=== PATIENT | male | born 1965 | race Two or more races ===

== ENCOUNTER 2020-03-08 15:59 | Inpatient (IN) | payer OTHER ==
[2020-03-08] MEDS ORDERED: ONDANSETRON *ODT* 4 MG TABLET SL ONE (17:00)
[2020-03-08 17:35] VITALS: BMI 36.1
[2020-03-08] MEDS ORDERED: MAGNESIUM CITRATE 300 ML BOTTLE PO PRN (18:10)
[2020-03-08] MEDS ORDERED: MENTHOL/PHENOL 1 EACH UD MM PRN (18:10)
[2020-03-08] MEDS ORDERED: IBUPROFEN 400 MG TABLET (FP) PO PRN (18:10)
[2020-03-08] MEDS ORDERED: ACETAMINOPHEN 325 MG TABLET (FP) PO PRN ×2 (18:10)
[2020-03-08] MEDS ORDERED: MAG HYDROX/AL HYDROX/SIMETH 30 ML UNIT-DOSE CUP PO PRN (18:10)
[2020-03-08] MEDS ORDERED: MAGNESIUM HYDROX 2400MG/30ML ORAL SUSPENSION 30 ML CUP PO PRN (18:10)
[2020-03-08] MEDS ORDERED: BISMUTH SUBSALICYLATE 524 MG/30 ML UD PO PRN (18:10)
[2020-03-08] MEDS ORDERED: NICOTINE POLACRILEX 2 MG GUM BUC PRN (18:10)
[2020-03-08] MEDS ORDERED: METHOCARBAMOL 500 MG TABLET PO PRN (18:10)
[2020-03-08] MEDS ORDERED: ALBUTEROL SO4 0.083% IH SOL 2.5 MG/3 ML VIAL.NEB. NEB PRN (19:13)
[2020-03-08] MEDS ORDERED: chlordiazePOXIDE HCL 25 MG CAPSULE PO PRN (19:14)
[2020-03-08] MEDS: PANTOPRAZOLE 40 MG TABLET PO SCH (19:46)
[2020-03-08] MEDS: THIAMINE HCL 100 MG TABLET (FP) PO SCH (22:04)
[2020-03-08] MEDS: MELATONIN 5 MG TABLETS PO SCH (22:04)
[2020-03-08] MEDS: hydrOXYzine PAMOATE 25 MG CAPSULE (FP) PO SCH (22:04)
[2020-03-08] MEDS: chlordiazePOXIDE HCL 25 MG CAPSULE PO SCH (22:05)
[2020-03-09] MEDS: chlordiazePOXIDE HCL 25 MG CAPSULE PO SCH ×4 (05:45→22:06)
[2020-03-09] MEDS: hydrOXYzine PAMOATE 25 MG CAPSULE (FP) PO SCH ×5 (05:46→22:06)
[2020-03-09 09:47] LABS: HEMATOCRIT 40.1 % (35.4-49); HEMOGLOBIN 13.4 GM/dL (11.7-16.9); MCH 31.3 pg (25.7-33.7); MCHC 33.5 g/dl (32.0-35.9); MEAN CELL VOLUME 93.3 fl (80-96); MEAN PLT VOLUME 9.7 fl (7.5-11.1); PLATELET COUNT 174 K/MM3 (134-434); RBC 4.29 M/mm3 (4.00-5.60); RDW 13.3 % (11.9-15.9); WHITE BLOOD COUNT 5.2 K/mm3 (4.0-10.0)
[2020-03-09 09:56] LABS: ALBUMIN 3.8 g/dl (3.4-5.0); CALCIUM 9.4 mg/dL (8.5-10.1); CREATININE 1.2 mg/dL (0.55-1.3); POTASSIUM 3.7 mmol/L (3.5-5.1)
[2020-03-09 09:58] LABS: BILIRUBIN,TOTAL 0.5 mg/dL (0.2-1); TOT PROT 6.8 g/dl (6.4-8.2)
[2020-03-09] MEDS: PRENATAL VITAMINS W/ FOLIC ACID TABLET (FP) PO SCH (10:05)
[2020-03-09] MEDS: PANTOPRAZOLE 40 MG TABLET PO SCH (10:06)
[2020-03-09] MEDS: ASPIRIN COATED 81 MG TABLET.EC PO SCH (10:06)
[2020-03-09] MEDS: HYDROCHLOROTHIAZIDE 25 MG TABLET (FP) PO SCH (10:06)
[2020-03-09] MEDS: INSULIN SLIDING SCALE (NOVOLOG) 1 VIAL SQ SCH ×2 (17:26→21:28)
[2020-03-09] MEDS: MELATONIN 5 MG TABLETS PO SCH (22:07)
[2020-03-09] MEDS: THIAMINE HCL 100 MG TABLET (FP) PO SCH (22:07)
[2020-03-10] MEDS: hydrOXYzine PAMOATE 25 MG CAPSULE (FP) PO SCH ×5 (05:46→22:20)
[2020-03-10] MEDS: chlordiazePOXIDE HCL 25 MG CAPSULE PO SCH ×4 (05:46→22:20)
[2020-03-10] MEDS: INSULIN SLIDING SCALE (NOVOLOG) 1 VIAL SQ SCH ×4 (07:34→21:17)
[2020-03-10] MEDS ORDERED: INSULIN SLIDING SCALE (NOVOLOG) 1 VIAL SQ ONE (07:38)
[2020-03-10] MEDS: PRENATAL VITAMINS W/ FOLIC ACID TABLET (FP) PO SCH (10:11)
[2020-03-10] MEDS: ASPIRIN COATED 81 MG TABLET.EC PO SCH (10:11)
[2020-03-10] MEDS: HYDROCHLOROTHIAZIDE 25 MG TABLET (FP) PO SCH (10:11)
[2020-03-10] MEDS: PANTOPRAZOLE 40 MG TABLET PO SCH (10:12)
[2020-03-10] MEDS ORDERED: LOPERAMIDE HCL 2 MG CAPSULE PO ONE (12:10)
[2020-03-10] MEDS: THIAMINE HCL 100 MG TABLET (FP) PO SCH (22:20)
[2020-03-10] MEDS: MELATONIN 5 MG TABLETS PO SCH (22:20)
[2020-03-11] MEDS ORDERED: chlordiazePOXIDE HCL 10 MG CAPSULE PO PRN
[2020-03-11] MEDS: chlordiazePOXIDE HCL 10 MG CAPSULE PO SCH ×4 (05:46→22:17)
[2020-03-11] MEDS: hydrOXYzine PAMOATE 25 MG CAPSULE (FP) PO SCH ×5 (05:46→22:17)
[2020-03-11] MEDS: INSULIN SLIDING SCALE (NOVOLOG) 1 VIAL SQ SCH ×4 (07:34→21:18)
[2020-03-11] MEDS ORDERED: INSULIN SLIDING SCALE (NOVOLOG) 1 VIAL SQ ONE (07:38)
[2020-03-11] MEDS: ASPIRIN COATED 81 MG TABLET.EC PO SCH (10:08)
[2020-03-11] MEDS: HYDROCHLOROTHIAZIDE 25 MG TABLET (FP) PO SCH (10:08)
[2020-03-11] MEDS: PANTOPRAZOLE 40 MG TABLET PO SCH (10:08)
[2020-03-11] MEDS: PRENATAL VITAMINS W/ FOLIC ACID TABLET (FP) PO SCH (10:09)
[2020-03-11 14:23] LABS: PH,URINE 5.5 (5.0-8.0); URINE APPEARANCE CLEAR; URINE BILIRUBIN NEGATIVE (NEGATIVE); URINE COLOR YELLOW; URINE GLUCOSE (UA) 1+ (NEGATIVE); URINE KETONE NEGATIVE (NEGATIVE); URINE LEUK ESTERASE NEGATIVE (NEGATIVE); URINE NITRITE NEGATIVE (NEGATIVE); URINE PROTEIN NEGATIVE (NEGATIVE); URINE UROBILINOGEN 0.2 mg/dL (0.2-1.0)
[2020-03-11] MEDS: MELATONIN 5 MG TABLETS PO SCH (22:17)
[2020-03-11] MEDS: THIAMINE HCL 100 MG TABLET (FP) PO SCH (22:17)
[2020-03-12] MEDS: hydrOXYzine PAMOATE 25 MG CAPSULE (FP) PO SCH ×5 (05:25→21:35)
[2020-03-12] MEDS: chlordiazePOXIDE HCL 10 MG CAPSULE PO SCH ×2 (05:25→17:16)
[2020-03-12] MEDS ORDERED: INSULIN SLIDING SCALE (NOVOLOG) 1 VIAL SQ ONE ×3 (05:37→11:49)
[2020-03-12] MEDS: INSULIN SLIDING SCALE (NOVOLOG) 1 VIAL SQ SCH ×4 (06:17→21:36)
[2020-03-12] MEDS: PRENATAL VITAMINS W/ FOLIC ACID TABLET (FP) PO SCH (10:19)
[2020-03-12] MEDS: ASPIRIN COATED 81 MG TABLET.EC PO SCH (10:19)
[2020-03-12] MEDS: PANTOPRAZOLE 40 MG TABLET PO SCH (10:19)
[2020-03-12] MEDS: HYDROCHLOROTHIAZIDE 25 MG TABLET (FP) PO SCH (10:19)
[2020-03-12] MEDS: MELATONIN 5 MG TABLETS PO SCH (21:35)
[2020-03-12] MEDS: THIAMINE HCL 100 MG TABLET (FP) PO SCH (21:35)
[2020-03-13] MEDS ORDERED: chlordiazePOXIDE HCL 10 MG CAPSULE PO ONE (05:00)
[2020-03-13] MEDS: hydrOXYzine PAMOATE 25 MG CAPSULE (FP) PO SCH ×2 (06:00→09:14)
[2020-03-13] MEDS: INSULIN SLIDING SCALE (NOVOLOG) 1 VIAL SQ SCH (06:58)
[2020-03-13] MEDS ORDERED: INSULIN SLIDING SCALE (NOVOLOG) 1 VIAL SQ ONE (07:02)
[2020-03-13] MEDS: HYDROCHLOROTHIAZIDE 25 MG TABLET (FP) PO SCH (09:13)
[2020-03-13] MEDS: ASPIRIN COATED 81 MG TABLET.EC PO SCH (09:13)
[2020-03-13] MEDS: PANTOPRAZOLE 40 MG TABLET PO SCH (09:14)
[2020-03-13] MEDS: PRENATAL VITAMINS W/ FOLIC ACID TABLET (FP) PO SCH (09:14)
[2020-03-13 09:27] VITALS: BP 127/86; PULSE 103; TEMP 97.1
[2020-03-13] MEDS ORDERED: metFORMIN HCL 500 MG TABLET (FP) PO SCH (16:30)
== END 2020-03-13 09:27 | disposition home or self-care (01) | DRG 897 ==
LOC: YASAS 15:59 → Y3N 18:49
PROVIDERS: ADMIT Allergy & Immunology; ATTEND Allergy & Immunology
PROC: HZ2ZZZZ Detoxification Services for Substance Abuse Treatment (ICD-10-PCS; principal; 2020-03-08)
DX: F10.230 Alcohol dependence with withdrawal, uncomplicated (principal); F12.20 Cannabis dependence, uncomplicated; F17.211 Nicotine dependence, cigarettes, in remission; F41.9 Anxiety disorder, unspecified; F43.10 Post-traumatic stress disorder, unspecified; I10 Essential (primary) hypertension; J45.909 Unspecified asthma, uncomplicated; K21.9 Gastro-esophageal reflux disease without esophagitis; E11.9 Type 2 diabetes mellitus without complications; Z79.84 Long term (current) use of oral hypoglycemic drugs; R12 Heartburn; E66.9 Obesity, unspecified; Z68.36 Body mass index [BMI] 36.0-36.9, adult; Z86.718 Personal history of other venous thrombosis and embolism; Z95.828 Presence of other vascular implants and grafts; Z56.0 Unemployment, unspecified
CPT/HCPCS: 36415; 80053; 81003; 82962; 83036; 85027; 86780; 93005; 93010; Q0162; U0003

== ENCOUNTER 2024-07-14 17:08 | Inpatient (IN) | payer OTHER ==
[2024-07-14 18:50] VITALS: BMI 34.5
[2024-07-15] MEDS ORDERED: IBUPROFEN 400 MG TABLET (FP) PO PRN (00:03)
[2024-07-15] MEDS ORDERED: BENZONATATE 200 MG CAPSULE PO PRN (00:03)
[2024-07-15] MEDS ORDERED: NALOXONE (NARCAN) HCL 4 MG/0.1 ML SPRAY NS PRN (00:03)
[2024-07-15] MEDS ORDERED: hydrOXYzine PAMOATE 25 MG CAPSULE (FP) PO PRN (00:03)
[2024-07-15] MEDS ORDERED: LOPERAMIDE HCL 2 MG CAPSULE PO PRN (00:03)
[2024-07-15] MEDS ORDERED: guaiFENesin 600 MG TABLET.ER (FP) PO PRN (00:03)
[2024-07-15] MEDS ORDERED: BENZOCAINE/MENTHOL (CHLORASEPTIC ) LOZENGE MM PRN (00:03)
[2024-07-15] MEDS ORDERED: ONDANSETRON *ODT* 4 MG TABLET SL PRN (00:03)
[2024-07-15] MEDS ORDERED: POLYETHYLENE GLYCOL (HEALTHYLAX) 3350 17 GM PACKET PO PRN (00:03)
[2024-07-15] MEDS ORDERED: MAG HYDROX/AL HYDROX/SIMETH 30 ML UNIT-DOSE CUP PO PRN (00:03)
[2024-07-15] MEDS ORDERED: NALOXONE (NYS OPIOID OVERDOSE PROGRAM) 4 MG/0.1 ML SPRAY NS PRN (00:03)
[2024-07-15] MEDS ORDERED: DICYCLOMINE HCL 10 MG CAPSULE PO PRN (00:03)
[2024-07-15] MEDS ORDERED: chlordiazePOXIDE HCL 25 MG CAPSULE PO PRN (00:06)
[2024-07-15] MEDS ORDERED: ALBUTEROL SO4 2.5/IPRATROPIUM 0.5 INH SOL 3 ML VIAL.NEB. NEB ONE (00:19)
[2024-07-15] MEDS: ALBUTEROL SO4 0.083% IH SOL 2.5 MG/3 ML VIAL.NEB. NEB ONE (00:37)
[2024-07-15] MEDS ORDERED: ACETAMINOPHEN 325 MG TABLET (FP) ONE (01:21)
[2024-07-15] MEDS: chlordiazePOXIDE HCL 25 MG CAPSULE PO SCH (04:30)
[2024-07-15] MEDS: INSULIN ASPART SLIDING SCALE (NOVOLOG) 1 VIAL SQ SCH (06:24)
[2024-07-15] MEDS: PRENATAL VITAMINS W/ FOLIC ACID TABLET (FP) PO SCH (10:25)
[2024-07-15] MEDS: BISMUTH SUBSALICYLATE 524 MG/30 ML PO PRN (10:27)
[2024-07-15] MEDS: ACETAMINOPHEN 325 MG TABLET (FP) PO PRN (12:59)
[2024-07-15] MEDS: LISINOPRIL 10 MG TABLET PO SCH (14:04)
[2024-07-15] MEDS: IBUPROFEN 600 MG TABLET (FP) PO PRN (17:28)
[2024-07-15] MEDS ORDERED: [UNRECOGNIZED DRUG - OTHER] PO SCH (22:00)
[2024-07-15] MEDS ORDERED: EZETIMIBE PO SCH (22:00)
[2024-07-15] MEDS ORDERED: ROSUVASTATIN CALCIUM PO SCH (22:00)
[2024-07-15] MEDS ORDERED: ROSUVASTATIN CA 10 MG TABLET ONE (23:02)
[2024-07-15] MEDS: METHOCARBAMOL 500 MG TABLET PO PRN (23:03)
[2024-07-15] MEDS: THIAMINE 100 MG TABLET PO SCH (23:03)
[2024-07-15] MEDS: MELATONIN 5 MG TABLETS PO SCH (23:03)
[2024-07-15] MEDS: MONTELUKAST NA 10 MG TABLET PO SCH (23:04)
[2024-07-15] MEDS: ROSUVASTATIN CA 20 MG TABLET PO SCH (23:07)
[2024-07-15] MEDS: BUDESONIDE/FORMETEROL FUMARATE 160/4.5 mcg INHALER IH SCH (23:10)
[2024-07-15] MEDS: EZETIMIBE 10 MG TABLET (FP) PO SCH (23:11)
[2024-07-16] MEDS: chlordiazePOXIDE HCL 25 MG CAPSULE PO SCH (05:23)
[2024-07-16] MEDS: HYDROCHLOROTHIAZIDE 25 MG TABLET (FP) PO SCH (10:15)
[2024-07-16] MEDS: MAGNESIUM HYDROX 2400MG/30ML ORAL SUSPENSION 30 ML CUP PO PRN (22:26)
[2024-07-16] MEDS: ALBUTEROL SO4 HFA INHALER IH PRN (22:43)
[2024-07-16] MEDS: ALBUTEROL SO4 2.5/IPRATROPIUM 0.5 INH SOL 3 ML VIAL.NEB. NEB ONE (22:53)
[2024-07-16 23:01] VITALS: BP 150/101; TEMP 97.5
[2024-07-16 23:21] VITALS: PULSE 95; RESP 24
[2024-07-16] MEDS: ALBUTEROL SO4 0.042% IH SOL 1.25 MG/3 ML VIAL.NEB NEB ONE (23:57)
[2024-07-17] MEDS ORDERED: chlordiazePOXIDE HCL 10 MG CAPSULE PO PRN
[2024-07-17] MEDS ORDERED: chlordiazePOXIDE HCL 10 MG CAPSULE PO SCH (05:00)
[2024-07-18] MEDS ORDERED: chlordiazePOXIDE HCL 10 MG CAPSULE PO SCH (05:00)
[2024-07-19] MEDS ORDERED: chlordiazePOXIDE HCL 10 MG CAPSULE PO ONE (05:00)
== END 2024-07-17 02:00 | disposition short-term general hospital (02) | DRG 897 ==
LOC: YASAS 17:08 → Y3N 07-15 02:15
PROVIDERS: ADMIT Allergy & Immunology; ATTEND Family Medicine
PROC: HZ2ZZZZ Detoxification Services for Substance Abuse Treatment (ICD-10-PCS; principal; 2024-07-15)
DX: F10.230 Alcohol dependence with withdrawal, uncomplicated (principal); F41.1 Generalized anxiety disorder; F32.A Depression, unspecified; F43.10 Post-traumatic stress disorder, unspecified; I10 Essential (primary) hypertension; E11.9 Type 2 diabetes mellitus without complications; J45.909 Unspecified asthma, uncomplicated; Z86.718 Personal history of other venous thrombosis and embolism; Z87.891 Personal history of nicotine dependence
CPT/HCPCS: 36415; 80305; 80307; 82962; 93005; 93010; 94640

== ENCOUNTER 2024-07-17 | Inpatient (IN) | payer OTHER ==
[2024-07-17 00:06] VITALS: BMI 33.0
[2024-07-17] MEDS ORDERED: EPINEPHrine/PF 1 MG/1 ML (1:1,000) AMPULE ONE (00:07)
[2024-07-17] MEDS ORDERED: ALBUTEROL SO4 0.083% IH SOL 2.5 MG/3 ML VIAL.NEB. NEB ONE (00:09)
[2024-07-17] MEDS: EPINEPHrine 1:1,000 1,000 MCG/ML ML SQ ONE ×2 (00:12→11:10)
[2024-07-17] MEDS: ALBUTEROL SULFATE 0.021% (0.63 MG/3 ML) VIAL.NEB NEB ONE ×2 (00:12→03:08)
[2024-07-17] MEDS ORDERED: MAGNESIUM SULFATE IN WATER 2 GM/50 ML IVPB IVPB ONE (00:14)
[2024-07-17] MEDS: MAGNESIUM SULF 50% (8.12 MEQ/2 ML-1 GM VIAL) IVPB ONE (00:18)
[2024-07-17 00:38] LABS: BASO % 0.8 % (0-2.0); EOS % 2.8 % (0-4.5); HEMATOCRIT 40.6 % (35.4-49); HEMOGLOBIN 13.5 GM/dL (11.7-16.9); LYMPH % 48.3 % (8-40); MCHC 33.2 g/dl (32.0-35.9); MEAN CELL VOLUME 90.6 fl (80-96); MEAN PLT VOLUME 9.1 fl (7.5-11.1); MONO % 10.8 % (3.8-10.2); NEUT % 37.3 % (42.8-82.8); PLATELET COUNT 141 10^3/uL (134-434); RBC 4.48 M/mm3 (4.00-5.60); WHITE BLOOD COUNT 5.3 K/mm3 (4.0-10.0)
[2024-07-17 00:57] LABS: VENOUS BASE EXCESS 0.3 mmol/L (-2-2); VENOUS O2 SATURATION 99.4 % (70-80); VENOUS PCO2 32.4 mmHg (38-52); VENOUS PH 7.472 (7.310-7.410)
[2024-07-17 01:03] LABS: POTASSIUM 4.5 mmol/L (3.5-5.1)
[2024-07-17 01:05] LABS: ALBUMIN 3.8 g/dl (3.4-5.0); BLOOD UREA NITROGEN 13.1 mg/dL (7-18); CALCIUM 9.6 mg/dL (8.5-10.1); MAGNESIUM 2.5 mg/dL (1.8-2.4)
[2024-07-17 01:10] LABS: BILIRUBIN,TOTAL 0.5 mg/dL (0.2-1); TOT PROT 6.8 g/dl (6.4-8.2)
[2024-07-17] MEDS ORDERED: ALBUTEROL SO4 2.5/IPRATROPIUM 0.5 INH SOL 3 ML VIAL.NEB. NEB ONE ×2 (03:02→08:49)
[2024-07-17] MEDS: IPRATROPIUM BR 0.02% 0.5 MG/2.5 ML VIAL.NEB. NEB ONE (03:09)
[2024-07-17] MEDS ORDERED: ALBUTEROL SO4 0.083% IH SOL 2.5 MG/3 ML VIAL.NEB. NEB PRN ×3 (07:37→12:00)
[2024-07-17] MEDS ORDERED: chlordiazePOXIDE HCL 10 MG CAPSULE ONE (08:50)
[2024-07-17] MEDS ORDERED: INSULIN ASPART SLIDING SCALE (NOVOLOG) 1 VIAL SQ ONE (08:51)
[2024-07-17] MEDS: ALBUTEROL SO4 2.5/IPRATROPIUM 0.5 INH SOL 3 ML VIAL.NEB. NEB SCH (08:58)
[2024-07-17] MEDS: INSULIN ASPART SLIDING SCALE (NOVOLOG) 1 VIAL SQ SCH (08:58)
[2024-07-17] MEDS: chlordiazePOXIDE HCL 10 MG CAPSULE PO SCH (08:58)
[2024-07-17] MEDS: ACETAMINOPHEN 325 MG TABLET (FP) PO PRN (09:42)
[2024-07-17] MEDS: methylPREDNISolone NA SUCC 40 MG/1 ML VIAL IVPUSH SCH (09:50)
[2024-07-17] MEDS ORDERED: DIVALPROEX SODIUM 500 MG TABLET E.C. PO SCH (10:00)
[2024-07-17] MEDS: ALBUTEROL SO4 0.083% IH SOL 2.5 MG/3 ML VIAL.NEB. NEB ONE (10:03)
[2024-07-17] MEDS: ACETAMINOPHEN 1000 MG/100 ML BAG IVPB ONE (10:04)
[2024-07-17] MEDS ORDERED: ALBUTEROL SO4 2.5/IPRATROPIUM 0.5 INH SOL 3 ML VIAL.NEB. NEB SCH (10:30)
[2024-07-17 10:41] LABS: ALLENS TEST POSITIVE; ARTERIAL BLD GAS O2 SATURATION 99.7 % (95-98); ARTERIAL BLOOD GAS BASE EXCESS -3.8 mmol/L (-2-2); ARTERIAL BLOOD GAS PO2 266.3 mmHg (80-100); VENT MODE S/T
[2024-07-17 10:42] LABS: VENT RATE 12
[2024-07-17] MEDS: MAGNESIUM 2GM/50ML STERILE WATER IVPB IVPB ONE (10:45)
[2024-07-17] MEDS: methylPREDNISolone NA SUCC 125 MG/2 ML VIAL IVPUSH ONE ×2 (10:45→11:07)
[2024-07-17] MEDS: FUROSEMIDE 40 MG/4 ML INJECTABLE VIAL IVPUSH ONE (10:45)
[2024-07-17] MEDS: FOLIC ACID 1 MG TABLET (FP) PO SCH (11:03)
[2024-07-17] MEDS: EMPAGLIFLOZIN (JARDIANCE) 10 MG TABLET PO SCH (11:03)
[2024-07-17] MEDS: MULTIVITAMINS (DAILY MVI) TABLET (FP) PO SCH (11:04)
[2024-07-17] MEDS: PANTOPRAZOLE 40 MG TABLET PO SCH (11:04)
[2024-07-17] MEDS: THIAMINE 100 MG TABLET PO SCH (11:06)
[2024-07-17] MEDS: ENOXAPARIN NA (PORCINE) 40 MG/0.4 ML DISP.SYRIN SQ SCH (11:38)
[2024-07-17] MEDS: PIPERACILLIN/TAZOB 3.375 GM 3.375 GM in DEXTROSE 5%-WATER - 50 ML IVPB SCH ×3 (11:38→17:20)
[2024-07-17] MEDS: RACEPINEPHRINE IH SOL 2.25% 11.25 MG/0.5 ML VIAL NEB ONE (11:54)
[2024-07-17] MEDS: BUDESONIDE/FORMETEROL FUMARATE 160/4.5 mcg INHALER IH SCH (12:26)
[2024-07-17] MEDS: VANCOMYCIN/WATER FOR INJ (PEG) 1,000 MG/200 ML BAG IVPB ONE (13:46)
[2024-07-17 15:21] LABS: HIV INTERPRETATION NEGATIVE (NEGATIVE)
[2024-07-17] MEDS: ACAMPROSATE CALCIUM 333 MG TABLET.DR PO SCH (17:22)
[2024-07-17] MEDS: amLODIPine BESYLATE 10 MG TABLET (FP) PO SCH (17:22)
[2024-07-17] MEDS: LISINOPRIL 20 MG TABLET PO SCH (17:22)
[2024-07-17] MEDS: PATIENT'S OWN MEDICATION (NON-FORMULARY) (Amlodipine Besylate/Benazepril [Amlodipine-Benaz PO SCH (17:40)
[2024-07-17] MEDS: IBUPROFEN 400 MG TABLET (FP) PO PRN (18:31)
[2024-07-17] MEDS: ROSUVASTATIN CA 20 MG TABLET PO SCH (22:10)
[2024-07-17] MEDS: MONTELUKAST NA 10 MG TABLET PO SCH (22:11)
[2024-07-17] MEDS: INSULIN (LEVEMIR) 100 UNITS/ML UNITS SQ SCH (22:11)
[2024-07-18] MEDS: methylPREDNISolone NA SUCC 125 MG/2 ML VIAL IVPUSH ONE (00:16)
[2024-07-18] MEDS: chlordiazePOXIDE HCL 10 MG CAPSULE PO PRN (00:18)
[2024-07-18] MEDS: BENZOCAINE/MENTH/CETYLPYRD CL 1 EACH LOZENGE MM PRN (01:02)
[2024-07-18] MEDS: EMPAGLIFLOZIN (JARDIANCE) 10 MG TABLET PO SCH (06:46)
[2024-07-18] MEDS: chlordiazePOXIDE HCL 10 MG CAPSULE PO SCH (06:46)
[2024-07-18] MEDS: LEVALBUTEROL HCL 0.63 MG/3 ML VIAL.NEB. IH SCH (08:49)
[2024-07-18 10:30] LABS: BASO % 0.1 % (0-2.0); HEMATOCRIT 43.1 % (35.4-49); INR 0.96 (0.83-1.09); LYMPH % 8.3 % (8-40); MCH 30.2 pg (25.7-33.7); MCHC 32.6 g/dl (32.0-35.9); MEAN CELL VOLUME 92.6 fl (80-96); MEAN PLT VOLUME 9.2 fl (7.5-11.1); MONO % 5.9 % (3.8-10.2); NEUT % 85.7 % (42.8-82.8); PLATELET COUNT 169 10^3/uL (134-434); PROTHROMBIN TIME (PATIENT) 11.1 SEC (9.7-13.0); RBC 4.65 M/mm3 (4.00-5.60); WHITE BLOOD COUNT 13.4 K/mm3 (4.0-10.0)
[2024-07-18 10:33] LABS: ACTIVATED PTT 25.6 SECONDS (25.2-36.5)
[2024-07-18 11:21] LABS: POTASSIUM 4.4 mmol/L (3.5-5.1)
[2024-07-18 11:23] LABS: CALCIUM 10.4 mg/dL (8.5-10.1)
[2024-07-18 11:24] LABS: BLOOD UREA NITROGEN 24.8 mg/dL (7-18)
[2024-07-18 11:28] LABS: CREATININE 1.6 mg/dL (0.55-1.3)
[2024-07-18 12:02] LABS: N-TERMINAL BNP 198.6 pg/ml (5-125)
[2024-07-18] MEDS: MAG HYDROX/AL HYDROX/SIMETH 30 ML UNIT-DOSE CUP PO ONE (13:55)
[2024-07-18] MEDS: IPRATROPIUM BR 0.02% 0.5 MG/2.5 ML VIAL.NEB. NEB SCH (14:03)
[2024-07-18] MEDS ORDERED: POLYETHYLENE GLYCOL (HEALTHYLAX) 3350 17 GM PACKET PO PRN (16:10)
[2024-07-18 21:05] VITALS: RESP 18
[2024-07-18] MEDS: methylPREDNISolone NA SUCC 40 MG/1 ML VIAL IVPUSH SCH (21:19)
[2024-07-19] MEDS: chlordiazePOXIDE HCL 10 MG CAPSULE PO ONE (05:05)
[2024-07-19 06:27] VITALS: TEMP 97.5
[2024-07-19 09:24] VITALS: BP 134/78; PULSE 94
[2024-07-19] MEDS: AMOX TR/POT CLAV 875MG/125MG TABLETS (FP) PO SCH (09:38)
[2024-07-19] MEDS: predniSONE 20 MG TABLET (UD) PO SCH (09:39)
[2024-07-19] MEDS ORDERED: predniSONE 20 MG TABLET (UD) PO SCH (10:00)
[2024-07-19] MEDS ORDERED: methylPREDNISolone NA SUCC 40 MG/1 ML VIAL IVPUSH SCH (10:00)
[2024-07-19 10:30] LABS: BASO % 0.1 % (0-2.0); HEMATOCRIT 43.7 % (35.4-49); HEMOGLOBIN 14.3 GM/dL (11.7-16.9); LYMPH % 12.2 % (8-40); MCH 30.1 pg (25.7-33.7); MCHC 32.7 g/dl (32.0-35.9); MEAN CELL VOLUME 91.9 fl (80-96); MEAN PLT VOLUME 9.4 fl (7.5-11.1); MONO % 5.9 % (3.8-10.2); NEUT % 81.8 % (42.8-82.8); PLATELET COUNT 164 10^3/uL (134-434); RBC 4.75 M/mm3 (4.00-5.60); RDW 15.7 % (11.9-15.9); WHITE BLOOD COUNT 12.3 K/mm3 (4.0-10.0)
[2024-07-19 10:42] LABS: POTASSIUM 4.2 mmol/L (3.5-5.1)
[2024-07-19 10:49] LABS: MAGNESIUM 2.3 mg/dL (1.8-2.4)
[2024-07-19 10:50] LABS: ALBUMIN 4.1 g/dl (3.4-5.0); BLOOD UREA NITROGEN 22.4 mg/dL (7-18)
[2024-07-19 10:52] LABS: CREATININE 1.4 mg/dL (0.55-1.3)
[2024-07-19 10:54] LABS: BILIRUBIN,TOTAL 0.5 mg/dL (0.2-1); TOT PROT 7.4 g/dl (6.4-8.2)
== END 2024-07-19 14:06 | disposition home or self-care (01) | DRG 202 ==
LOC: JER → JERBED 01:29 → J6W 09:37 → J5S 07-19 11:06
PROVIDERS: ADMIT Internal Medicine; ATTEND Internal Medicine
DX: J45.901 Unspecified asthma with (acute) exacerbation (principal); J18.9 Pneumonia, unspecified organism; J96.00 Acute respiratory failure, unspecified whether with hypoxia or hypercapnia; N17.9 Acute kidney failure, unspecified; I50.32 Chronic diastolic (congestive) heart failure; I11.0 Hypertensive heart disease with heart failure; E78.5 Hyperlipidemia, unspecified; G43.909 Migraine, unspecified, not intractable, without status migrainosus; G47.33 Obstructive sleep apnea (adult) (pediatric); E11.9 Type 2 diabetes mellitus without complications; Z86.718 Personal history of other venous thrombosis and embolism
CPT/HCPCS: 0241U-QW; 36415; 36600; 71045-TC-FY; 71046-TC-FY; 80048; 80053; 82803; 82962; 83735; 83880; 84100; 85025; 85610; 85730; 86704; 86705; 86803; 87389; 93005; 93010; 94640; 94660; 94761; 99285-25; J0131